=== PATIENT | male | born 1965 | race Caucasian/White ===

== ENCOUNTER → 2023-05-15 | Outpatient (CLI) | payer OTHER ==
[~2023-05-15] MED LIST: ALBU17IN INH; ALBU17IN2 INH; MAX; NORV5TAB PO; OMEP40CA4 PO; PERCOCET PO; PRED10PA PO; TYLE325T5 PO
== END ==
LOC: M RAD 09:15
PROVIDERS: ATTEND Otolaryngology
DX: J33.0 Polyp of nasal cavity (principal)

== ENCOUNTER → 2023-05-22 | Outpatient (CLI) | payer OTHER ==
[~2023-05-22] MED LIST changes: +BARIUM SULFATE 700 MG TABLET (E-Z-DISK) As Ordered ONE; +E-Z-PAQUE 96% w/w SUSP 176GM BTL As Ordered ONE; +VARIBAR NECTAR 40% w/v 240ML SUSP BTL As Ordered ONE; +VARIBAR PUDDING 40% w/v 230ML TUBE As Ordered ONE
== END ==
LOC: M RAD 09:53
PROVIDERS: ATTEND Otolaryngology
DX: R13.19 Other dysphagia (principal)